=== PATIENT | male | born 1930 | race Caucasian/White ===

== ENCOUNTER 2016-10-19 18:31 | Inpatient (IN) | payer MEDICARE ==
--- NOTE | 2016-10-19 19:11 | ED ---
General Adult HPI - General Chief complaint: Recheck/Abnormal Lab/Rx Stated complaint: Kidney Stone Source: EMS Mode of arrival: EMS Limitations: no limitations - History of Present Illness Initial comments: Patient is a 86-year-old male who presents as a transfer from an outside hospital for 8 mm kidney stone at the right ureteropelvic junction. Past medical history as below. Patient has a significant history of recurrent kidney stones. Has a history of lithotripsy in the early 1999. Over the last couple of days he's been having progressively worsening right flank pain. The pain acutely exacerbated today which prompted him to go to outside hospital for evaluation. While at the outside hospital, the patient received Dilaudid, Toradol, levofloxacin, IV fluid bolus, Zofran. Pain is somewhat well- controlled at this time. Patient was transferred because he has significant leukocytosis and lactic acidosis. No urinary tract infection. He currently denies fever, chills, headache, changes of vision, URI symptoms, shortness breath, cough, chest pain, vomiting, diarrhea Review of Systems ROS Statement: Those systems with pertinent positive or pertinent negative responses have been documented in the HPI. ROS Other: All systems not noted in ROS Statement are negative. Past Medical History Additional Past Medical History / Comment(s): kidney stone History of Any Multi-Drug Resistant Organisms: None Reported Past Surgical History: Appendectomy Additional Past Surgical History / Comment(s): implant Past Psychological History: No Psychological Hx Reported Smoking Status: Former smoker Past Alcohol Use History: None Reported Past Drug Use History: None Reported General Exam Limitations: no limitations General appearance: alert, in no apparent distress, other (No acute distress) Head exam: Present: atraumatic, normocephalic, normal inspection Eye exam: Present: normal appearance, PERRL, EOMI. Absent: scleral icterus, conjunctival injection, periorbital swelling ENT exam: Present: normal exam, mucous membranes moist Neck exam: Present: normal inspection. Absent: tenderness, meningismus, lymphadenopathy Respiratory exam: Present: normal lung sounds bilaterally. Absent: respiratory distress, wheezes, rales, rhonchi, stridor Cardiovascular Exam: Present: regular rate, normal rhythm, normal heart sounds. Absent: systolic murmur, diastolic murmur, rubs, gallop, clicks GI/Abdominal exam: Present: soft, normal bowel sounds. Absent: distended, tenderness, guarding, rebound, rigid exam: Present: other (Mild tenderness with palpation in the right lower flank.) Extremities exam: Present: normal inspection, full ROM, normal capillary refill. Absent: tenderness, pedal edema, joint swelling, calf tenderness Back exam: Present: normal inspection Neurological exam: Present: alert, oriented X3, CN II-XII intact Psychiatric exam: Present: normal affect, normal mood Skin exam: Present: warm, dry, intact, normal color. Absent: rash Course Vital Signs 10/19/16 18:35 Temperature 98.5 F Pulse Rate 110 H Respiratory 20 Rate Blood Pressure 168/89 O2 Sat by Pulse 94 L Oximetry Medical Decision Making - Medical Decision Making Patient is an 86-year-old male with an 8 mm stone at the right ureteropelvic junction confirmed on CT imaging of his abdomen and pelvis without contrast. Lavatory studies are as followed; white count of 14.6, hemoglobin 14.4, hematocrit 42.5, platelets 266, sodium 143, potassium 4.3, chloride 101, bicarb 23, BUN 19, creatinine 1.1, glucose 205, albumin 4.4, alk phos 61, AOT 34, AST 19, bilirubin 0.6, lactic acid 2.9, urinalysis revealing specific gravity of 1.015, urine bilirubin negative, urine blood 4+, urine glucose 2+, urine ketones 1+, negative nitrate, trace leukocyte esterase, less than 2 WBCs, 50- 100 RBCs. Patient has multiple medical conditions. Significant leukocytosis and lactic acidosis without clear signs of infection at this time. We'll order a chest x- ray and repeat the lactic acid and continue IV maintenance fluids. Will require admission. 1920: Spoke with Dr. Desir (Urology) - recommending getting a KUB and admission to medicine due to lactic acidosis. -Patient does have some mild tachycardia and tachypnea with leukocytosis. 3 or 4 surgical criteria. However, the patient does not have any signs of infection at this time. Will repeat the lactic acid. Will not order blood cultures at the patient received a dose of levofloxacin prior to arrival. Will observe closely prior to starting any other antibiotics. 1933: Spoke with Dr. Desai who agrees with admission. No further orders. Disposition Clinical Impression: Kidney stone on right side, Lactic acidosis, Leukocytosis, KAY (acute kidney injury) Disposition: HOME SELF-CARE Condition: Good Referrals: Sharif Horta DO [Primary Care Provider] - 1-2 days Decision to Admit Reason: Admit from [facility]
[2016-10-19] MEDS ORDERED: ONDANSETRON 4 MG/2 ML VIAL IVP PRN (19:36)
[2016-10-19] MEDS ORDERED: NALOXONE 0.4 MG/ML 1 ML VIAL IV PRN (19:36)
[2016-10-19] MEDS: SODIUM CHLORIDE 0.9% 1,000 ML IV SCH (19:56)
--- NOTE | 2016-10-19 20:19 | XR ---
EXAMINATION TYPE: XR chest 1V portable DATE OF EXAM: 10/19/2016 COMPARISON: NONE HISTORY: Flank pain TECHNIQUE: Single frontal view of the chest is obtained. FINDINGS: There is no heart failure nor confluent pneumonic infiltrate. There are no hilar masses. C ostophrenic angles are clear. IMPRESSION: No active cardiopulmonary disease.
--- NOTE | 2016-10-19 20:19 | XR ---
EXAMINATION TYPE: XR KUB portable DATE OF EXAM: 10/19/2016 COMPARISON: NONE HISTORY: Flank pain TECHNIQUE: 2 views FINDINGS: There is no sign of intestinal obstruction or pneumoperitoneum. Fecal pattern is normal. Th ere is a 5 mm calcification over the right upper quadrant. IMPRESSION: Nonacute abdomen. Possible right renal calculus. Prostate implants are noted.
[2016-10-19] MEDS ORDERED: SODIUM CHLORIDE 0.9% 1,000 ML IV ONE ×2 (20:42→20:45)
[2016-10-19] MEDS: HYDROmorphone 1 MG/ML 1 ML SYRINGE IV PRN ×2 (20:43→23:45)
[2016-10-19 21:28] LABS: Glucose,Whole Blood 149 mg/dL (75-99)
[2016-10-19] MEDS: ATORVASTATIN 10 MG TAB PO SCH (23:15)
[2016-10-19] MEDS: LISINOPRIL 20 MG TAB PO SCH (23:15)
[2016-10-20 00:23] LABS: Basophils % (A) 0 %; CH 31.3; CHCM 33.6; Eosinophils # (A) 0.1 k/uL (0-0.7); Eosinophils % (A) 1 %; HCT 39.9 % (39.0-53.0); HDW 2.56; HGB 13.2 gm/dL (13.0-17.5); Luc # (Auto) 0.14; Luc % (Auto) 1; Lymphocytes # (A) 2.1 k/uL (1.0-4.8); Lymphocytes % (A) 18 %; MCH 30.9 pg (25.0-35.0); MCV 93.6 fL (80.0-100.0); Mean Platelet Volume 7.4; Monocytes # (A) 0.7 k/uL (0-1.0); Monocytes % (A) 6 %; Neutrophils # (A) 8.5 k/uL (1.3-7.7); Neutrophils % (A) 74 %; RBC 4.26 m/uL (4.30-5.90); RDW 13.8 % (11.5-15.5); WBC 11.5 k/uL (3.8-10.6); WBC (Perox) 11.83
[2016-10-20 00:38] LABS: ALT 27 U/L (21-72); AST 17 U/L (17-59); Alkaline Phosphatase 55 U/L (38-126); Anion Gap 12 mmol/L; Blood Urea Nitrogen 18 mg/dL (9-20); Calcium 8.6 mg/dL (8.4-10.2); Carbon Dioxide 23 mmol/L (22-30); Chloride 107 mmol/L (98-107); Glucose 161 mg/dL (74-99); Non-African American GFR(MDRD) 59 (>60 ml/min/1.73 sqM); Potassium 3.9 mmol/L (3.5-5.1); Sodium 142 mmol/L (137-145); Total Bilirubin 0.7 mg/dL (0.2-1.3); Total Protein 6.5 g/dL (6.3-8.2)
[2016-10-20 02:09] LABS: Appearance,Urine Clear (Clear); Bilirubin,Urine Negative (Negative); Glucose,Urine (UA) 2+ (Negative); Ketones,Urine Trace (Negative); Leukocyte Esterase,Urine Negative (Negative); Mucus,Urine Rare /hpf; Nitrite,Urine Negative (Negative); PH, Urine 6.5 (5.0-8.0); Particle Count 1646; Protein,Urine Trace (Negative); RBC,Urine >182 /hpf (0-5); Specific Gravity,Urine 1.015 (1.001-1.035); UA Billing (MACRO vs. MICRO) MICRO; Urobilinogen,Urine <2.0 mg/dL (<2.0)
[2016-10-20] MEDS: HYDROmorphone 1 MG/ML 1 ML SYRINGE IV PRN ×3 (06:22→20:34)
[2016-10-20 07:22] LABS: Glucose,Whole Blood 177 mg/dL (75-99)
--- NOTE | 2016-10-20 07:35 | HP ---
DATE OF ADMISSION: 10/19/2016 CHIEF COMPLAINT: An 86-year-old male who presents from an outside facility with an 8 mm kidney stone in right ureteropelvic junction, recurrent kidney stones. He had lithotripsy in early 1999. Presents with progressive right flank pain over the last few days. ( ) Levaquin and Toradol, Dilaudid, fluid boluses, Zofran. Shows he has significant leukocytosis, lactic acidosis. Denies fever, chills, URI symptoms, shortness of breath, cough, congestion, vomiting or diarrhea. Fourteen-point review of systems negative except for as mentioned in HPI. PAST MEDICAL HISTORY: Renal stone. SURGICAL HISTORY: Penile implants, appendectomy. SOCIAL HISTORY: Former smoker. No alcohol. No illicit drugs. Temperature 98.5, respiratory rate 18 to 20, pulse rate is low 100s. Blood pressures was 160s over 80s. O2 94% on room air. CARDIOVASCULAR: Regular rate and rhythm. No murmurs, rubs, gallops. LUNGS: Clear. GI: Soft. Tenderness to palpation right flank area. No guarding. No rebound. HEMATOLOGIC: Negative Homans. PSYCHIATRIC: Fair mood and affect. NEUROLOGIC: Alert and oriented x3 ( ). SKIN: Warm, dry, intact. White count 14.6. Hemoglobin is 14.4, platelets 266, sodium 143, potassium 4.3, BUN 19, creatinine 1.1. Urine shows 2+ glucose, 4+ blood, negative nitrate, negative trace leukocyte esterase. Continue Levaquin due to lactic acidosis. Urology consulted for possible stone extraction in the morning. Continue home medications and treatment.
[2016-10-20] MEDS: TAMSULOSIN 0.4 MG CAP.ER.24H PO SCH (09:58)
[2016-10-20] MEDS: LEVOFLOXACIN 500MG-D5W PMX 500 MG in DEXTROSE/WATER 1 100ML.BAG IVPB SCH (09:58)
[2016-10-20] MEDS: FENOFIBRATE 160 MG TAB PO SCH (09:58)
[2016-10-20] MEDS: BISOPROLOL-HCTZ 5-6.25 MG 1 EACH TAB PO SCH (09:58)
[2016-10-20] MEDS: metFORMIN 500 MG TAB PO SCH ×2 (09:58→20:33)
[2016-10-20] MEDS: LISINOPRIL 20 MG TAB PO SCH ×2 (09:58→20:34)
[2016-10-20] MEDS: SODIUM CHLORIDE 0.9% 1,000 ML IV SCH ×2 (10:01→22:11)
[2016-10-20 11:46] LABS: Glucose,Whole Blood 159 mg/dL (75-99)
--- NOTE | 2016-10-20 12:37 | P.GSCN ---
History of Present Illness Consult date: 10/20/16 Reason for Consult: Kidney stone Requesting physician: Natalio Desai History of present illness: The patient is an 86-year-old white male with a history of urolithiasis. Specifically, he has had 4 prior episodes of urolithiasis, one of which required ureteroscopy with stone manipulation. He had a 24-hour urine study done in the past. He presented to [facility] yesterday with a 1 day history of gross hematuria and right flank pain. He was subsequently transferred to [facility]. He also has a history of prostate cancer, which was treated with radiation therapy over 10 years ago. He has a urologist in the [facility], whom he last saw in June 2016. He expressed an interest in transferring his urological care to [place]. Review of Systems - Constitutional Denies chills, Denies fever - Gastrointestinal Reports nausea, Reports vomiting - Genitourinary Reports hematuria, Denies dysuria Past Medical History Past Medical History: Diabetes Mellitus, Hypertension Additional Past Medical History / Comment(s): prostate cancer, kidney stone History of Any Multi-Drug Resistant Organisms: None Reported Past Surgical History: Appendectomy Additional Past Surgical History / Comment(s): implant Past Anesthesia/Blood Transfusion Reactions: No Reported Reaction Past Psychological History: No Psychological Hx Reported Smoking Status: Former smoker Past Alcohol Use History: None Reported Past Drug Use History: None Reported Medications and Allergies Home Medications Medication Instructions Recorded Confirmed Type Alfuzosin HCl [Alfuzosin HCl ER] 10 mg PO DAILY 10/19/16 10/19/16 History Aspirin 81 mg PO DAILY 10/19/16 10/19/16 History Bisoprol/Hydrochlorothiazide 1 tab PO DAILY 10/19/16 10/19/16 History [Bisoprolol-Hctz 5-6.25 mg Tab] Fenofibrate 160 mg PO DAILY 10/19/16 10/19/16 History Lisinopril [Prinivil] 20 mg PO BID 10/19/16 10/19/16 History Simvastatin 20 mg PO HS 10/19/16 10/19/16 History metFORMIN HCL [Metformin HCl] 500 mg PO BID 10/19/16 10/19/16 History Allergies Allergy/AdvReac Type Severity Reaction Status Date / Time Penicillins Allergy Unknown Verified 10/19/16 19:56 Childhood Surgical - Exam Vital Signs Temp Pulse Resp BP Pulse Ox 98.5 F 110 H 20 168/89 94 L 10/19/16 18:35 10/19/16 18:35 10/19/16 18:35 10/19/16 18:35 10/19/16 18:35 - General well developed, well nourished, no distress - Respiratory normal respiratory effort - Abdomen Abdomen: soft, tender (mild RUQ tenderness), no masses, no guarding, no rigid, no rebound, no distended Hernia: umbilical - Genitourinary normal penis with no external lesions, testicles non-tender - Psychiatric oriented to time, oriented to person, oriented to place, speech is normal, memory intact Results - Labs 10/20/16 00:11 10/20/16 00:11 Abnormal Lab Results - Last 24 Hours (Table) 10/19/16 10/19/16 10/20/16 Range/Units 19:40 21:26 00:11 WBC 11.5 H (3.8-10.6) k/uL RBC 4.26 L (4.30-5.90) m/uL Neutrophils # 8.5 H (1.3-7.7) k/uL Glucose (74-99) mg/dL POC Glucose (mg/dL) 149 H (75-99) mg/dL Plasma Lactic Acid Jason 2.7 H* (0.7-2.0) mmol/L Urine Protein (Negative) Urine Glucose (UA) (Negative) Urine Ketones (Negative) Urine Blood (Negative) Urine RBC (0-5) /hpf Urine Mucus (None) /hpf 10/20/16 10/20/16 10/20/16 Range/Units 00:11 01:35 07:19 WBC (3.8-10.6) k/uL RBC (4.30-5.90) m/uL Neutrophils # (1.3-7.7) k/uL Glucose 161 H (74-99) mg/dL POC Glucose (mg/dL) 177 H (75-99) mg/dL Plasma Lactic Acid Jason (0.7-2.0) mmol/L Urine Protein Trace H (Negative) Urine Glucose (UA) 2+ H (Negative) Urine Ketones Trace H (Negative) Urine Blood Large H (Negative) Urine RBC >182 H (0-5) /hpf Urine Mucus Rare H (None) /hpf 10/20/16 Range/Units 11:44 WBC (3.8-10.6) k/uL RBC (4.30-5.90) m/uL Neutrophils # (1.3-7.7) k/uL Glucose (74-99) mg/dL POC Glucose (mg/dL) 159 H (75-99) mg/dL Plasma Lactic Acid Jason (0.7-2.0) mmol/L Urine Protein (Negative) Urine Glucose (UA) (Negative) Urine Ketones (Negative) Urine Blood (Negative) Urine RBC (0-5) /hpf Urine Mucus (None) /hpf Diabetes panel 10/20/16 Range/Units 00:11 Sodium 142 (137-145) mmol/L Potassium 3.9 (3.5-5.1) mmol/L Chloride 107 (98-107) mmol/L Carbon Dioxide 23 (22-30) mmol/L BUN 18 (9-20) mg/dL Creatinine 1.18 (0.66-1.25) mg/dL Glucose 161 H (74-99) mg/dL Calcium 8.6 (8.4-10.2) mg/dL AST 17 (17-59) U/L ALT 27 (21-72) U/L Alkaline Phosphatase 55 (38-126) U/L Total Protein 6.5 (6.3-8.2) g/dL Albumin 3.7 (3.5-5.0) g/dL Thyroid panel 10/20/16 Range/Units 00:11 TSH 3.920 (0.465-4.680) mIU/L Calcium panel 10/20/16 Range/Units 00:11 Calcium 8.6 (8.4-10.2) mg/dL Albumin 3.7 (3.5-5.0) g/dL Pituitary panel 10/20/16 Range/Units 00:11 Sodium 142 (137-145) mmol/L Potassium 3.9 (3.5-5.1) mmol/L Chloride 107 (98-107) mmol/L Carbon Dioxide 23 (22-30) mmol/L BUN 18 (9-20) mg/dL Creatinine 1.18 (0.66-1.25) mg/dL Glucose 161 H (74-99) mg/dL Calcium 8.6 (8.4-10.2) mg/dL TSH 3.920 (0.465-4.680) mIU/L Adrenal panel 10/20/16 Range/Units 00:11 Sodium 142 (137-145) mmol/L Potassium 3.9 (3.5-5.1) mmol/L Chloride 107 (98-107) mmol/L Carbon Dioxide 23 (22-30) mmol/L BUN 18 (9-20) mg/dL Creatinine 1.18 (0.66-1.25) mg/dL Glucose 161 H (74-99) mg/dL Calcium 8.6 (8.4-10.2) mg/dL Total Bilirubin 0.7 (0.2-1.3) mg/dL AST 17 (17-59) U/L ALT 27 (21-72) U/L Alkaline Phosphatase 55 (38-126) U/L Total Protein 6.5 (6.3-8.2) g/dL Albumin 3.7 (3.5-5.0) g/dL - Imaging Abdominal x-ray: report reviewed, image reviewed CT scan - abdomen: report reviewed Assessment and Plan (1) Ureteral calculus, right Status: Acute Plan: I had a lengthy discussion with the patient and his son. A computed tomography scan at [facility] on 10/19/2016 showed an 8 mm right ureteral calculus at the ureteropelvic junction, resulting in moderate right hydronephrosis with significant perinephric stranding. The calculus is visible on a plain radiograph, but appears somewhat smaller. The calculus has a low likelihood of spontaneous passage. Surgical options including ESWL versus ureteroscopy with laser lithotripsy. Each procedure was reviewed with the patient, and the pros and cons of both were discussed. He has elected to undergo ureteroscopic removal of the calculus. Potential risks were reviewed with the patient include anesthesia, ureteral injury, inability to successfully remove the calculus, and infection. The rationale for stent placement following the procedure was reviewed. I intend to perform this procedure tomorrow morning, and I believe he will be able to be discharged postoperatively. Time with Patient: Greater than 30
[2016-10-20 17:02] LABS: Glucose,Whole Blood 167 mg/dL (75-99)
[2016-10-20] MEDS: ATORVASTATIN 10 MG TAB PO SCH (20:34)
[2016-10-20 21:49] LABS: Basophils % (A) 0 %; CH 31.4; CHCM 33.3; Eosinophils % (A) 0 %; HCT 39.3 % (39.0-53.0); HDW 2.56; HGB 12.9 gm/dL (13.0-17.5); Luc # (Auto) 0.09; Luc % (Auto) 1; Lymphocytes # (A) 1.9 k/uL (1.0-4.8); Lymphocytes % (A) 15 %; MCHC 32.8 g/dL (31.0-37.0); MCV 94.7 fL (80.0-100.0); Mean Platelet Volume 7.3; Monocytes # (A) 0.8 k/uL (0-1.0); Monocytes % (A) 6 %; Neutrophils # (A) 9.9 k/uL (1.3-7.7); Neutrophils % (A) 78 %; RBC 4.15 m/uL (4.30-5.90); RDW 13.7 % (11.5-15.5); WBC 12.8 k/uL (3.8-10.6); WBC (Perox) 13.38
[2016-10-20 21:50] LABS: Glucose,Whole Blood 177 mg/dL (75-99)
[2016-10-21] MEDS: HYDROmorphone 1 MG/ML 1 ML SYRINGE IV PRN (01:26)
[2016-10-21 07:24] LABS: Glucose,Whole Blood 157 mg/dL (75-99)
[2016-10-21] MEDS ORDERED: LACTATED RINGERS 1,000 ML IV ONE (08:33)
[2016-10-21] MEDS ORDERED: MIDAZOLAM 2 MG/2 ML VIAL ONE (08:50)
[2016-10-21] MEDS ORDERED: NEOSTIGMINE 1 MG/ML 10 ML VIAL ONE (08:50)
[2016-10-21] MEDS ORDERED: fentaNYL (PF) 50 MCG/ML 2 ML AMP ONE (08:50)
[2016-10-21] MEDS ORDERED: LIDOCAINE 1% INJ 10MG/ML (20 ML MDV) ONE (08:50)
[2016-10-21] MEDS ORDERED: GLYCOPYRROLATE 0.2 MG/ML 2 ML VIAL ONE (08:50)
[2016-10-21] MEDS ORDERED: ONDANSETRON 4 MG/2 ML VIAL ONE (08:50)
[2016-10-21] MEDS ORDERED: SUCCINYLCHOLINE CHLORIDE 100 MG/5 ML SYR IV ONE (08:50)
[2016-10-21] MEDS ORDERED: PROPOFOL 10 MG/ML 20 ML VIAL IV ONE (08:50)
[2016-10-21] MEDS ORDERED: ROCURONIUM BROMIDE 10 MG/ML 10 ML VIAL IV ONE (08:50)
--- NOTE | 2016-10-21 10:01 | P.OP ---
Date of Procedure: 10/21/16 Preoperative Diagnosis: Right Ureteral Calculus Postoperative Diagnosis: Same Procedure(s) Performed: Cystoscopy, Right Ureteroscopy with Holmium Laser Lithotripsy, Right Ureteral Stent Insertion Implants: Anesthesia: ROSANAA Surgeon: Ajay Desir Estimated Blood Loss (ml): 20 IV fluids (ml): 600 Pathology: none sent Condition: stable Disposition: PACU Indications for Procedure: The patient is an 86-year-old white male with a history of urolithiasis. He was admitted October 19 with right renal colic due to an 8 mm right UPJ calculus. He has elected to undergo ureteroscopic removal of the calculus. Operative Findings: Right mid ureteral calculus, fragmented to completion. Description of Procedure: The patient was taken to the operating room and placed in the dorsolithotomy position, with legs supported in Alok stirrups. The external genitalia was prepped and draped sterilely. The 30 lens was used to introduce the 19-Eritrean Stortz cystoscopic sheath through the urethra and into the bladder under direct vision. The prostatic urethra showed evidence of mild lateral lobe enlargement and a high median bar. The bladder was examined in its entirety. Both ureteral orifices were normal anatomic location and configuration. No tumors or foreign bodies were seen. Mild postradiation changes were noted within the prostatic urethra and the bladder, and the bladder neck mucosa was noted to be quite friable. A 0.038 inch Glidewire was passed through the cystoscope. The right ureteral orifice was cannulated, and the Glidewire was advanced up to the right renal pelvis. An 11/13-Eritrean ureteral access catheter was passed over the wire, up to the mid ureter. The mini flexible ureteroscope was passed through the ureteral access catheter sheath and was advanced through the proximal ureter under direct vision, up to the right renal pelvis. Debris was noted, consistent with obstruction. Each calyx was examined. A calculus was not identified. The ureteroscope was slowly withdrawn. There was an area of inflammation and edema within the proximal ureter, perhaps where the calculus had been impacted. As the ureteroscope was withdrawn, the calculus was identified within the mid ureter. It appeared that the calculus was pushed into the wall of the ureter as the ureteral access catheter was placed. The 200 micron Holmium laser probe was passed through the ureteroscope, and lithotripsy was performed. The calculus was not dense, and fragmented well. Lithotripsy was continued until all calculus fragments were small enough to readily pass. Inflammation in this portion of the ureter was noted, which appeared to be chronic. There was no evidence of ureteral perforation. After removing the ureteroscope, the cystoscope was replaced into the bladder. The Glidewire was passed through the cystoscope, the right ureteral orifice was cannulated, and the Glidewire was advanced up to the right renal pelvis. A 28 cm, 6-Eritrean double-J ureteral stent was placed over the wire. Proper stent positioning was verified fluoroscopically and endoscopically. The bladder was emptied and the cystoscope removed. The patient tolerated the procedure well and was taken to the recovery room in stable condition.
--- NOTE | 2016-10-21 10:01 | FL ---
FLUOROSCOPY 43 seconds of fluoroscopy time were utilized during right ureteroscopy. 4 images document the procedu re.
[2016-10-21 10:38] LABS: Glucose,Whole Blood 156 mg/dL (75-99)
--- NOTE | 2016-10-21 10:53 | PN ---
SUBJECTIVE: An 86-year-old white male who was admitted to the hospital with acute urolithiasis, ureteral stenosis with hydronephrosis, still able to get some urine out. He has a history of prostate implants. He is on empiric Levaquin for urosepsis, UTI with possible pyelonephritis. PLAN: The patient will continue with IV antibiotics. We will have surgery remove ureteral stone. Follow up in the next 24 to 48 hours for possible for treatment and possible discharge after ureteral stenosis is taking care of.
[2016-10-21] MEDS: BISOPROLOL-HCTZ 5-6.25 MG 1 EACH TAB PO SCH (11:27)
[2016-10-21] MEDS: metFORMIN 500 MG TAB PO SCH (11:27)
[2016-10-21] MEDS: TAMSULOSIN 0.4 MG CAP.ER.24H PO SCH (11:27)
[2016-10-21] MEDS: FENOFIBRATE 160 MG TAB PO SCH (11:27)
[2016-10-21] MEDS: LISINOPRIL 20 MG TAB PO SCH (11:27)
[2016-10-21] MEDS: LEVOFLOXACIN 500MG-D5W PMX 500 MG in DEXTROSE/WATER 1 100ML.BAG IVPB SCH (11:29)
[2016-10-21] MEDS: SODIUM CHLORIDE 0.9% 1,000 ML IV SCH (11:30)
[2016-10-21 11:51] LABS: Glucose,Whole Blood 155 mg/dL (75-99)
[2016-10-21 14:39] VITALS: BP 130/66; PULSE 78; RESP 16; TEMP 98.3
[2016-10-22] MEDS ORDERED: ASPIRIN 81 MG CHEW PO SCH (09:00)
[2016-10-22 11:34] LABS: Hemoglobin A1C 7.3 % (4.2-6.1)
== END 2016-10-21 15:27 | disposition home or self-care (01) | DRG 669 ==
LOC: EC 18:31 → 4MS4W 19:36
PROVIDERS: ADMIT Family Medicine; ATTEND Family Medicine
PROC: 0T768DZ Dilation of Right Ureter with Intraluminal Device, Via Natural or Artificial Opening Endoscopic (ICD-10-PCS; 2016-10-21)
PROC: 0TC68ZZ Extirpation of Matter from Right Ureter, Via Natural or Artificial Opening Endoscopic (ICD-10-PCS; principal; 2016-10-21 08:30)
DX: N13.6 Pyonephrosis (principal); E87.2 Acidosis; E11.9 Type 2 diabetes mellitus without complications; R31.0 Gross hematuria; I10 Essential (primary) hypertension; Z87.891 Personal history of nicotine dependence; Z85.46 Personal history of malignant neoplasm of prostate; Z87.442 Personal history of urinary calculi; Z92.3 Personal history of irradiation; Z79.84 Long term (current) use of oral hypoglycemic drugs; Z79.82 Long term (current) use of aspirin; Z79.899 Other long term (current) drug therapy
CPT/HCPCS: 36415; 71010; 74000; 80053; 81001; 83036; 83605; 84443; 85025; 87086; 93005; 96361; 96374; 96375; 99285

== ENCOUNTER → 2016-12-03 | Outpatient (CLI) | payer MEDICARE ==
--- NOTE | 2016-12-03 09:38 | US ---
EXAMINATION TYPE: US kidneys/renal and bladder DATE OF EXAM: 12/03/2016 COMPARISON: CT scan 10/19/2016 CLINICAL HISTORY: N13.[address], right lithotripsy in October EXAM MEASUREMENTS: Right Kidney: 12.9 x 4.8 x 4.9 cm Left Kidney: 12.9 x 5.8 x 5.2 cm Right Kidney: No hydronephrosis or nephrolithiasis Left Kidney: No hydronephrosis or nephrolithiasis. Bladder: wnl Bilateral Jets seen: Only right jet visualized Incidental finding gallstones There is no evidence for hydronephrosis at this point in time. No nephrolithiasis is seen. No brooke s are identified. The urinary bladder is anechoic. Bilateral ureteral jets are seen. IMPRESSION: Gallstones. No hydronephrosis or nephrolithiasis.
== END | disposition home or self-care (01) ==
LOC: RADUSWWP 08:38
PROVIDERS: ATTEND Urology
DX: K80.20 Calculus of gallbladder without cholecystitis without obstruction (principal)
CPT/HCPCS: 76770

== ENCOUNTER → 2018-07-28 | Outpatient (CLI) | payer MEDICARE | LOC: LABWHC1 09:18 | PROVIDERS: ATTEND Urology | DX: C61 Malignant neoplasm of prostate (principal) | CPT/HCPCS: 36415; 84153 ==

== ENCOUNTER → 2019-09-15 | Outpatient (CLI) | payer MEDICARE | END | disposition home or self-care (01) | LOC: LABWHC1 10:54 | PROVIDERS: ATTEND Urology | DX: C61 Malignant neoplasm of prostate (principal) | CPT/HCPCS: 36415; 84153 ==

== ENCOUNTER → 2020-09-13 | Outpatient (CLI) | payer MEDICARE | END | disposition home or self-care (01) | LOC: LABWHC1 10:14 | PROVIDERS: ATTEND Urology | DX: C61 Malignant neoplasm of prostate (principal) | CPT/HCPCS: 36415; 84153 ==